=== PATIENT | female | born 1995 | race Caucasian/White ===

== ENCOUNTER 2018-12-07 13:04 | Emergency (ER) | payer OTHER ==
[~2018-12-07] VITALS: Ht 167.6 cm; Wt 136.1 kg
[2018-12-07] MEDS ORDERED: DIVA500T (13:18)
[2018-12-07] MEDS ORDERED: CITA20TA4 (13:18)
[2018-12-07] MEDS ORDERED: AMIT50TA3 (13:18)
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
[2018-12-07] MEDS ORDERED: HYDROcodone/APAP 5 MG/325 MG (LORTAB) TAB PO ONE (13:45)
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
[2018-12-07] MEDS ORDERED: ACHD5005 PO (15:17)
[2018-12-07] MEDS ORDERED: ACETAMINOPHEN 325 MG TABLET ONE (15:34)
[2018-12-07 16:15] VITALS: BP 97/77
== END 2018-12-07 16:30 | disposition home or self-care (01) ==
LOC: ER FS 13:23
DX: S62.314A Displaced fracture of base of fourth metacarpal bone, right hand, initial encounter for closed fracture (principal); R40.2142 Coma scale, eyes open, spontaneous, at arrival to emergency department; R40.2252 Coma scale, best verbal response, oriented, at arrival to emergency department; R40.2362 Coma scale, best motor response, obeys commands, at arrival to emergency department; Z88.0 Allergy status to penicillin; V49.40XA Driver injured in collision with unspecified motor vehicles in traffic accident, initial encounter
CPT/HCPCS: 29125; 73130; 84703

== ENCOUNTER 2019-08-14 19:51 | Emergency (ER) | payer OTHER ==
[~2019-08-14] VITALS: Ht 167.7 cm; Wt 133.4 kg
[~2019-08-14 19:51] MED LIST: ACHD5005 PO; AMIT50TA3; CITA20TA4; DIVA500T
[2019-08-14 20:50] LABS: BILIRUBIN,URINE NEGATIVE (NEGATIVE); CLARITY,URINE CLOUDY; COLOR,URINE YELLOW; GLUCOSE, URINE (UA) NEGATIVE (NEGATIVE); KETONES,URINE NEGATIVE (NEGATIVE); LEUKOCYTE ESTERASE ,URINE NEGATIVE (NEGATIVE); NITRITE,URINE NEGATIVE (NEGATIVE); PH,URINE 6.5 (5-9); PROTEIN,URINE NEGATIVE (NEGATIVE); RBC,URINE 0-2 /HPF
[2019-08-14 20:51] LABS: BACTERIA,URINE MODERATE /HPF; SQUAMOUS EPITHELIAL CELL,UR >50 /HPF
[2019-08-14] MEDS ORDERED: IBUP-1780 PO (21:00)
--- NOTE | 2019-08-14 21:00 | ED GU-Female ---
General Chief Complaint: MAILROOM PERSONNEL Stated Complaint: VAGINAL BLEEDING DURING PREG. Nursing Triage Note: Patient states that she is 5 weeks and started having vaginal bleeding. Patient states that it is only when she wipes after using the bathroom. Patient states that it started brown and is now light pink. Patient also states that she had labs drawn and her last HCG was 62. Patient also reports mild crampinig when she arrived at the ER. Estimated due date is 04-13-20. Nursing Sepsis Screen: No Definite Risk Source: patient Exam Limitations: no limitations History of Present Illness Date Seen by Provider: Aug 14, 2019 Time Seen by Provider: 23:35 Initial Comments vaginal spotting today since 5 pm. Approx 5wks and seeing Dr Cates. Had a quant drawn on Friday with a level of 40. Scheduled to f/u in 1 wk for repeat. . NO significant abdominal or pelvic pain, does have some suprapubic cramping. Allergies and Home Medications Allergies Coded Allergies: amoxicillin (Verified Allergy, Unknown, hives, 12/07/18) Home Medications Hydrocodone Bit/Acetaminophen 1 Tab Tab, 1-2 EACH PO Q6H PRN for PAIN-MODERATE Prescribed by: MARE SCHMIDT on 12/07/18 1517 Ibuprofen 800 Mg Tablet, 800 MG PO Q8H PRN for PAIN-MILD Prescribed by: REKHA WASHINGTON on 08/14/19 2100 Patient Home Medication List Home Medication List Reviewed: Yes Review of Systems Review of Systems Constitutional: no symptoms reported; No dizziness, No fever, No malaise, No weakness Respiratory: no symptoms reported Cardiovascular: no symptoms reported Gastrointestinal: No abdominal pain, No nausea, No vomiting Genitourinary: see HPI; denies pain, denies urgency : Yes Musculoskeletal: No back pain, No muscle cramps Past Hxeknpf-Drouvc-Pqyfal Hx Past Med/Social Hx: Reviewed Nursing Past Med/Soc Hx Patient Social History Alcohol Use: Denies Use Recreational Drug Use: No Smoking Status: Never a Smoker Recent Foreign Travel: No Contact w/Someone Who Travel: No Recent Infectious Disease Expo: No Physical Abuse: No Sexual Abuse: No Mistreated: No Fear: No Seasonal Allergies Seasonal Allergies: No Past Medical History Surgeries: Yes Orthopedic Respiratory: No Cardiac: No Neurological: No Female Reproductive Disorders: Endometriosis Sexually Transmitted Disease: No HIV/AIDS: No Genitourinary: No Gastrointestinal: No Musculoskeletal: No Endocrine: No HEENT: No Cancer: No Psychosocial: No Integumentary: No Blood Disorders: No Physical Exam Vital Signs Vital Signs - First Documented 08/14/19 19:54 Temp 36.8 Pulse 88 Resp 20 B/P (MAP) 149/62 (91) Pulse Ox 99 O2 Delivery Room Air Capillary Refill : Less Than 3 Seconds Height, Weight, BMI Height: 5'6.00" Weight: 300lbs. oz. 136.060232uc; 47.00 BMI Method:Stated General Appearance: WD/WN, no apparent distress Cardiovascular: regular rate, rhythm, no JVD, no murmur Respiratory: chest non-tender, lungs clear Gastrointestinal: non tender, soft Pelvic: other (deferred) Skin: normal color, warm/dry Progress/Results/Core Measures Suspected Sepsis Recent Fever Within 48 Hours: No Infection Criteria Present: None New/Unexplained Altered Menta: No Sepsis Screen: No Definite Risk SIRS Temperature: Pulse: 88 Respiratory Rate: 20 Blood Pressure 149 /62 Mean: 91 Results/Orders Lab Results Laboratory Tests Test 08/14/19 20:23 08/14/19 20:37 Range/Units Human Chorionic Gonadotropin, Quant 46 H <5 MIU/ML Urine Color YELLOW Urine Clarity CLOUDY Urine pH 6.5 5-9 Urine Specific [place] 1.025 H 1.016-1.022 Urine Protein NEGATIVE NEGATIVE Urine Glucose (UA) NEGATIVE NEGATIVE Urine Ketones NEGATIVE NEGATIVE Urine Nitrite NEGATIVE NEGATIVE Urine Bilirubin NEGATIVE NEGATIVE Urine Urobilinogen 0.2 NORMAL MG/DL Urine Leukocyte Esterase NEGATIVE NEGATIVE Urine RBC (Auto) 2+ H NEGATIVE Urine RBC 0-2 /HPF Urine WBC 5-10 H /HPF Urine Squamous Epithelial Cells >50 H /HPF Urine Crystals NONE /LPF Urine Bacteria MODERATE H /HPF Urine Casts NONE /LPF Urine Mucus NEGATIVE /LPF Urine Culture Indicated YES My Orders Orders - REKHA WASHINGTON DO Hcg,Quantitative (08/14/19 20:08) Urinalysis (08/14/19 20:09) Urine Culture (08/14/19 20:37) Vital Signs/I&O 08/14/19 19:54 Temp 36.8 Pulse 88 Resp 20 B/P (MAP) 149/62 (91) Pulse Ox 99 O2 Delivery Room Air Capillary Refill : Less Than 3 Seconds Blood Pressure Mean: 91 Progress Note : Progress Note reviewed labs- decreased quant and contaminated urine. Departure Impression Primary Impression: Incomplete miscarriage Disposition: 01 HOME, SELF-CARE Condition: Stable Departure-Patient Inst. Decision time for Depature: 21:00 Referrals: ERIK ALBERTO MD (PCP/Family) Primary Care Physician Patient Instructions: Miscarriage (DC), Dealing With Miscarriage Scripts Ibuprofen (Ibuprofen) 800 Mg Tablet 800 MG PO Q8H PRN for PAIN-MILD, #30 TAB Prov: REKHA WASHINGTON DO 08/14/19 REKHA WASHINGTON DO Aug 14, 2019 21:00
[2019-08-14 21:04] VITALS: BP 149/62
== END 2019-08-14 21:04 | disposition home or self-care (01) ==
LOC: EDUNIT# 19:51 → ER FS 19:52
DX: O03.4 Incomplete spontaneous abortion without complication (principal); Z88.0 Allergy status to penicillin
CPT/HCPCS: 36415; 81000; 84702; 87088

== ENCOUNTER 2023-03-29 08:59 | Emergency (ER) | payer BC, OTHER ==
[~2023-03-29] VITALS: Ht 167.7 cm; Wt 128.3 kg
[~2023-03-29 08:59] MED LIST changes: +IBUP-1780 PO
[2023-03-29 09:14] VITALS: BP 138/87
--- NOTE | 2023-03-29 09:40 | ED GU-Female ---
General Chief Complaint: OB < 20 WEEKS Stated Complaint: VAGINAL BLEEDING DURING Source: patient Exam Limitations: no limitations History of Present Illness Date Seen by Provider: Mar 29, 2023 Time Seen by Provider: 09:00 Initial Comments 27yoF at 8w6d EGA by 1st trimester ultrasound coming in due to vaginal bleeding. She has had a total of 3 miscarriages in the past. She has never required procedures for these. This has been healthy thus far. She had a normal first trimester ultrasound. In the past she has had blood work showing no compatibility or genetic issues with prior pregnancies. She is on progesterone and baby aspirin daily. Had a small amount of blood in the toilet this morning, has had some brown streaking on toilet paper since then. No significant amount of bleeding. She has never required RhoGAM with prior pregnancies. She sees a junior high math teacher in [place] and they are closed today. She is otherwise denying any other acute complaints including no abdominal pain or cramping, no nausea, vomiting, fever, dysuria, diarrhea, rash, or any other concerns Allergies and Home Medications Allergies Coded Allergies: amoxicillin (Verified Allergy, Unknown, hives, 12/07/18) Patient Home Medication List Home Medication List Reviewed: Yes Amitriptyline Hcl (Elavil Tablet) 50 Mg Tab, (Reported) Entered as Reported by: EMMANUEL ARMIJO on 12/07/18 1318 Citalopram Hydrobromide (Citalopram Hbr) 20 Mg Tablet, (Reported) Entered as Reported by: EMMANUEL ARMIJO on 12/07/18 1318 Divalproex Sodium (Depakote) 500 Mg Tablet., (Reported) Entered as Reported by: EMMANUEL ARMIJO on 12/07/18 1318 Hydrocodone Bit/Acetaminophen (Lortab 5 Mg Tablet) 1 Tab Tab, 1-2 EACH PO Q6H PRN for PAIN-MODERATE Prescribed by: MARE SCHMIDT on 12/07/18 1517 Ibuprofen (Ibuprofen) 800 Mg Tablet, 800 MG PO Q8H PRN for PAIN-MILD Prescribed by: REKHA WASHINGTON on 08/14/19 2100 Review of Systems Review of Systems Constitutional: No fever EENTM: no symptoms reported Respiratory: no symptoms reported Cardiovascular: no symptoms reported Gastrointestinal: no symptoms reported Genitourinary: see HPI Musculoskeletal: no symptoms reported Skin: no symptoms reported Psychiatric/Neurological: No Symptoms Reported Endocrine: No Symptoms Reported Past Lrkjjxk-Pfuvta-Ajcllx Hx Patient Social History Tobacco Use?: No Substance use?: No Alcohol Use?: No Pt feels they are or have been: No Seasonal Allergies Seasonal Allergies: No Past Medical History Surgery/Hospitalization HX: 3 miscarriages, iron deficiency anemia, , knee surgery Surgeries: Yes Orthopedic Respiratory: No Cardiac: No Neurological: No Female Reproductive Disorders: Endometriosis Sexually Transmitted Disease: No HIV/AIDS: No Genitourinary: No Gastrointestinal: No Musculoskeletal: No Endocrine: No HEENT: No Cancer: No Psychosocial: No Integumentary: No Blood Disorders: No Physical Exam Vital Signs Vital Signs - First Documented 03/29/23 09:14 Temp 37.4 Pulse 92 Resp 16 B/P (MAP) 138/87 (104) Pulse Ox 100 O2 Delivery Room Air Capillary Refill : Height, Weight, BMI Height: 5'6.00" Weight: 300lbs. oz. 136.126316zu; 47.00 BMI Method:Stated General Appearance: WD/WN, no apparent distress HEENT: PERRL/EOMI, normal ENT inspection, pharynx normal Neck: non-tender, full range of motion, supple, normal inspection Cardiovascular: regular rate, rhythm, no edema, no murmur Respiratory: chest non-tender, lungs clear, normal breath sounds, no respiratory distress, no accessory muscle use Gastrointestinal: normal bowel sounds, non tender, soft; No distended, No guarding, No rebound Back: normal inspection, no CVA tenderness Extremities: normal range of motion, non-tender, normal inspection, no pedal edema, no calf tenderness, normal capillary refill Neurologic/Psychiatric: no motor/sensory deficits, alert, normal mood/affect Skin: normal color, warm/dry Progress/Results/Core Measures Suspected Sepsis SIRS Temperature: Pulse: Respiratory Rate: Blood Pressure / Mean: Results/Orders Lab Results Laboratory Tests Test 03/29/23 09:40 Range/Units Urine Color YELLOW Urine Clarity CLEAR Urine pH 6.5 5-9 Urine Specific [place] 1.025 H 1.016-1.022 Urine Protein NEGATIVE NEGATIVE Urine Glucose (UA) NEGATIVE NEGATIVE Urine Ketones NEGATIVE NEGATIVE Urine Nitrite NEGATIVE NEGATIVE Urine Bilirubin NEGATIVE NEGATIVE Urine Urobilinogen 1.0 < = 1.0 MG/DL Urine Leukocyte Esterase NEGATIVE NEGATIVE Urine RBC (Auto) 2+ H NEGATIVE Urine RBC NONE /HPF Urine WBC RARE /HPF Urine Squamous Epithelial Cells 25-50 H /HPF Urine Crystals NONE /LPF Urine Bacteria MODERATE H /HPF Urine Casts NONE /LPF Urine Mucus NEGATIVE /LPF Urine Culture Indicated NO My Orders Orders - DELMAR HERNANDEZ MD Hcg,Quantitative (03/29/23 09:34) Ua Culture If Indicated (03/29/23 09:34) Vital Signs/I&O 03/29/23 09:14 Temp 37.4 Pulse 92 Resp 16 B/P (MAP) 138/87 (104) Pulse Ox 100 O2 Delivery Room Air Capillary Refill : Progress Note : Progress Note 27-year-old female with above history coming in due to vaginal bleeding in the setting of bleeding just under 9 weeks . ABCs were intact and vitals are stable on presentation. She states it was a very small amount of blood and had essentially stopped with bleeding, now just brown on toilet paper. Abdominal exam is reassuring with no tenderness. She is well-appearing. I did a [id number] ultrasound showing intrauterine with heart rate of 160. I discussed doing a pelvic exam to see if the cervix is open or closed, patient would like to defer for now. We will do a beta-hCG for her to follow-up with her OB if they would like to do a repeat. Urinalysis was also sent for evaluation. The urine did have bacteria which will need to be treated during . An antibiotic will be sent to her pharmacy. Departure Impression Primary Impression: Threatened in first trimester Additional Impression: Asymptomatic bacteriuria during Disposition: 01 HOME, SELF-CARE Condition: Stable Departure-Patient Inst. Decision time for Depature: 10:00 Referrals: NO,LOCAL PHYSICIAN (PCP/Family) Primary Care Physician Patient Instructions: Bleeding In Early Add. Discharge Instructions: Unfortunately this is a threatened miscarriage and there are no medications or anything that can be done if it is going to be a miscarriage. The baby was in the uterus today and did have a heartbeat. Please call your OB on Friday and see if they would like to do repeat blood work. You can take Tylenol as needed if you begin having cramping. If you are having bleeding that is significant enough that you are fully saturating a super pad every hour for several hours in a row, we would want you to come back to the ER. You do have bacteria in your urine which will be treated with a twice a day antibiotic for the next 5 days. Scripts Nitrofurantoin Monohyd/M-Cryst (Macrobid 100 mg Capsule) 100 Mg Capsule 1 TAB PO BID for 5 Days, #10 CAP Prov: DELMAR HERNANDEZ MD 03/29/23 Work/School Note: Family Work Note, Patient Received Medical Care In the Emergency Department On: Mar 29, 2023 Patient Will Be Able to Return to Work/School On: Mar 30, 2023 Work Release Form Date Seen in the Emergency Department: Mar 29, 2023 Return to Work: Mar 30, 2023 Restrictions: No Restrictions DELMAR HERNANDEZ MD Mar 29, 2023 09:40
[2023-03-29 09:46] LABS: BILIRUBIN,URINE NEGATIVE (NEGATIVE); CLARITY,URINE CLEAR; COLOR,URINE YELLOW; GLUCOSE, URINE (UA) NEGATIVE (NEGATIVE); KETONES,URINE NEGATIVE (NEGATIVE); LEUKOCYTE ESTERASE ,URINE NEGATIVE (NEGATIVE); NITRITE,URINE NEGATIVE (NEGATIVE); PH,URINE 6.5 (5-9); PROTEIN,URINE NEGATIVE (NEGATIVE)
[2023-03-29 09:49] LABS: BACTERIA,URINE MODERATE /HPF; WBC,URINE RARE /HPF
[2023-03-29 09:50] LABS: SQUAMOUS EPITHELIAL CELL,UR 25-50 /HPF
[2023-03-29] MEDS ORDERED: NITR-65 PO (09:54)
== END 2023-03-29 10:09 | disposition home or self-care (01) ==
LOC: EDUNIT# 08:59 → ER FS 09:01
DX: O20.0 Threatened abortion (principal); O99.891 Other specified diseases and conditions complicating pregnancy; R82.71 Bacteriuria; Z3A.08 8 weeks gestation of pregnancy; Z88.1 Allergy status to other antibiotic agents
CPT/HCPCS: 36415; 81000; 84702